=== PATIENT | female | born 1980 | race Native Hawaiian/Other Pacific Islander ===

== ENCOUNTER 2016-10-16 18:54 | Inpatient (IN) | payer OTHER ==
[~2016-10-16] VITALS: Ht 172.7 cm; Wt 123.5 kg
[2016-10-16] VITALS (7 sets, daily range): BP systolic 59–97; BP diastolic 29–42; TEMP 96.9–97.6
[~2016-10-16 18:54] MED LIST: ACET-689 PO; BUT/APAP/CA3 PO; FURO40TA93 PO; MOTRIN IB200 MG OR; OXYCODONE30 MG PO; PERCOCET1 TA3 PO; SOMA350 MG PO; XANAX XR2 MG OR; ZESTRIL40 MG OR
[2016-10-16 19:19] LABS: PLATELET COUNT 141 K/uL (152-353)
[2016-10-16 19:30] LABS: POTASSIUM 4.9 mmol/L (3.6-5.2)
[2016-10-17] VITALS (94 sets, daily range): BP systolic 70–151; BP diastolic 30–96; TEMP 97.6–98.1; Ht 172.7 cm; Wt 123.5 kg
[2016-10-17 07:27] LABS: PLATELET COUNT 115 K/uL (152-353)
[2016-10-17 07:42] LABS: POTASSIUM 5.4 mmol/L (3.6-5.2)
[2016-10-18] VITALS (35 sets, daily range): BP systolic 134–1800; BP diastolic 10–99; TEMP 97.6–98.1
[2016-10-18 07:00] LABS: POTASSIUM 4.7 mmol/L (3.6-5.2)
[2016-10-18 07:35] LABS: PLATELET COUNT 93 K/uL (152-353)
[2016-10-19] VITALS (20 sets, daily range): BP systolic 117–190; BP diastolic 64–100; TEMP 97.5–98.1
[2016-10-19 06:03] LABS: PLATELET COUNT 97 K/uL (152-353)
[2016-10-19 06:53] LABS: POTASSIUM 3.9 mmol/L (3.6-5.2)
[2016-10-20] VITALS (11 sets, daily range): BP systolic 137–190; BP diastolic 73–111; TEMP 97.5–98.5
[2016-10-20 07:26] LABS: PLATELET COUNT 129 K/uL (152-353)
[2016-10-20 08:23] LABS: POTASSIUM 3.6 mmol/L (3.6-5.2)
[2016-10-21] VITALS (10 sets, daily range): BP systolic 160–189; BP diastolic 85–103; TEMP 98–98.5
[2016-10-21 07:23] LABS: PLATELET COUNT 147 K/uL (152-353)
[2016-10-21 07:44] LABS: POTASSIUM 3.2 mmol/L (3.6-5.2)
[2016-10-22] VITALS (15 sets, daily range): BP systolic 121–186; BP diastolic 40–113; TEMP 97.7–98.4
[2016-10-22 06:03] LABS: PLATELET COUNT 232 K/uL (152-353)
[2016-10-22 06:24] LABS: POTASSIUM 3.5 mmol/L (3.6-5.2)
[2016-10-23] VITALS (10 sets, daily range): BP systolic 109–149; BP diastolic 44–83; TEMP 97.3–98.6
[2016-10-23 05:46] LABS: PLATELET COUNT 281 K/uL (152-353)
[2016-10-23 06:05] LABS: POTASSIUM 3.6 mmol/L (3.6-5.2)
[2016-10-24 00:12] VITALS: BP 120/60; TEMP 97.9
[2016-10-24 04:00] VITALS: BP 125/80; TEMP 98.9
[2016-10-24 06:31] LABS: PLATELET COUNT 316 K/uL (152-353)
[2016-10-24 06:42] LABS: POTASSIUM 3.7 mmol/L (3.6-5.2)
[2016-10-24 07:38] VITALS: BP 155/83; TEMP 98.4
[2016-10-24 11:34] VITALS: BP 158/92; TEMP 98.2
[2016-10-24 16:19] VITALS: BP 151/88; TEMP 98.4
[2016-10-24 20:08] VITALS: BP 163/95; TEMP 98.3
[2016-10-25] VITALS: BP 163/95; TEMP 98.3
[2016-10-25 04:00] VITALS: BP 143/83; TEMP 97.7
[2016-10-25 05:47] LABS: PLATELET COUNT 360 K/uL (152-353)
[2016-10-25 06:05] LABS: POTASSIUM 3.8 mmol/L (3.6-5.2)
[2016-10-25 08:00] VITALS: BP 148/82; TEMP 98.4
[2016-10-25 12:00] VITALS: BP 138/69; TEMP 98.1
[2016-10-25 16:00] VITALS: BP 153/88; TEMP 98
[2016-10-25 20:00] VITALS: BP 154/80; TEMP 98.4
[2016-10-26 00:26] VITALS: BP 153/67; TEMP 98.2
[2016-10-26 04:00] VITALS: BP 117/58; TEMP 98.3
[2016-10-26 06:48] LABS: PLATELET COUNT 355 K/uL (152-353)
[2016-10-26 07:14] LABS: POTASSIUM 3.7 mmol/L (3.6-5.2); SODIUM 133 mmol/L (136-145)
[2016-10-26 08:16] VITALS: BP 119/62; TEMP 97.8
[2016-10-26 12:00] VITALS: BP 127/66; TEMP 97.6
[2016-10-26 16:00] VITALS: BP 152/79; TEMP 97.8
[2016-10-26 21:21] VITALS: BP 143/76; TEMP 98.9
[2016-10-27 00:07] VITALS: BP 110/66; TEMP 98.1
[2016-10-27 04:00] VITALS: BP 109/50; TEMP 98
[2016-10-27 05:27] LABS: PLATELET COUNT 411 K/uL (152-353)
[2016-10-27 05:56] LABS: POTASSIUM 3.7 mmol/L (3.6-5.2); SODIUM 133 mmol/L (136-145)
[2016-10-27 08:03] VITALS: BP 117/70; TEMP 98.4
[2016-10-27 11:59] VITALS: BP 124/66; TEMP 98.2
== END 2016-10-27 14:15 | disposition home or self-care (01) | DRG 682 ==
LOC: ED 18:54 → ICU 20:35 → MED/SURG 10-23 14:25
PROVIDERS: Emergency Medicine; Internal Medicine
DX: N17.8 Other acute kidney failure (principal); I50.23 Acute on chronic systolic (congestive) heart failure; R41.82 Altered mental status, unspecified; E86.0 Dehydration; M15.8 Other polyosteoarthritis; M62.82 Rhabdomyolysis; E87.6 Hypokalemia; E83.42 Hypomagnesemia; A04.7 Enterocolitis due to Clostridium difficile; G89.29 Other chronic pain; F32.89 Other specified depressive episodes; T40.601A Poisoning by unspecified narcotics, accidental (unintentional), initial encounter; T42.4X1A Poisoning by benzodiazepines, accidental (unintentional), initial encounter; F11.10 Opioid abuse, uncomplicated
CPT/HCPCS: 36415; 36600; 51702; 80053; 80301; 80307; 81000; 82550; 82553; 82805; 82948; 82962; 83036; 83735; 84100; 85007; 85027; 87015; 87045; 87205; 87328; 87329; 87493; 87899; 93005; 93306; 94760; 96361; 96365; 96372; 96376; 99285; G0479; J0696; J1265; J1644; J1650; J1940; J2310; J2405; J3475; J3490

== ENCOUNTER 2017-03-27 10:50 | Emergency (ER) | payer OTHER ==
[~2017-03-27] VITALS: Ht 172.7 cm; Wt 97.5 kg
[2017-03-27 10:55] VITALS: BP 157/81; TEMP 98.4
[2017-03-27] MEDS ORDERED: METHADONE40 MG OR (11:17)
[2017-03-27 11:38] LABS: PLATELET COUNT 227 K/uL (152-353)
[2017-03-27 11:43] LABS: SODIUM 131 mmol/L (136-145)
== END 2017-03-27 12:35 | disposition home or self-care (01) ==
LOC: ED 10:50
DX: M54.5 Low back pain (principal); M41.86 Other forms of scoliosis, lumbar region; M47.896 Other spondylosis, lumbar region
CPT/HCPCS: 36415; 80053; 85027; 96374; 96375; 99284; J2405

== ENCOUNTER 2017-03-28 13:48 | Outpatient (CLI) | payer OTHER ==
[~2017-03-28 13:48] MED LIST changes: +METHADONE40 MG OR
== END 2017-03-28 13:51 | disposition short-term general hospital (02) ==
LOC: AMB 13:48
DX: R41.82 Altered mental status, unspecified (principal)
CPT/HCPCS: A0425; A0427

== ENCOUNTER 2017-03-28 13:50 | Emergency (ER) | payer OTHER ==
[~2017-03-28] VITALS: Ht 175.3 cm; Wt 125.0 kg
[2017-03-28 15:28] LABS: PLATELET COUNT 257 K/uL (152-353)
[2017-03-28 16:00] LABS: POTASSIUM 6.8 mmol/L (3.6-5.2)
[2017-03-28 21:15] LABS: POTASSIUM 6.3 mmol/L (3.6-5.2)
[2017-03-28 22:11] VITALS: BP 117/62; TEMP 98
== END 2017-03-28 22:16 | disposition short-term general hospital (02) ==
LOC: ED 13:50
PROVIDERS: Specialist
DX: T65.91XA Toxic effect of unspecified substance, accidental (unintentional), initial encounter (principal); E87.5 Hyperkalemia; M62.82 Rhabdomyolysis; F19.90 Other psychoactive substance use, unspecified, uncomplicated; Y92.89 Other specified places as the place of occurrence of the external cause
CPT/HCPCS: 80048; 80307; 81002; 82550; 82553; 83605; 84132; 84484; 85027; 93005; 96360; 96365; 96375; 96376; 99285; G0479; J0610; J1815; J3490; J7060

== ENCOUNTER 2017-06-14 13:31 | Outpatient (CLI) | payer OTHER | END 2017-06-14 13:33 | disposition short-term general hospital (02) | LOC: AMB 13:31 | DX: F11.23 Opioid dependence with withdrawal (principal); R52 Pain, unspecified | CPT/HCPCS: A0425; A0427 ==

== ENCOUNTER 2017-06-14 13:40 | Observation (INO) | payer OTHER ==
[2017-06-14] VITALS (18 sets, daily range): BP systolic 120–162; BP diastolic 68–104; TEMP 97–98.2; Ht 172.7 cm; Wt 115.9 kg
[~2017-06-14] VITALS: Ht 172.7 cm; Wt 115.9 kg
[2017-06-14 14:08] LABS: PLATELET COUNT 215 K/uL (152-353)
[2017-06-14 14:11] LABS: SODIUM 131 mmol/L (136-145)
[2017-06-15 02:00] VITALS: BP 158/88
[2017-06-15 03:00] VITALS: BP 163/96
[2017-06-15 04:00] VITALS: BP 148/89; TEMP 98.2
[2017-06-15 05:00] VITALS: BP 161/96
[2017-06-15 05:54] LABS: PLATELET COUNT 192 K/uL (152-353)
[2017-06-15 06:00] VITALS: BP 142/75
[2017-06-15 06:10] LABS: POTASSIUM 4.1 mmol/L (3.6-5.2); SODIUM 134 mmol/L (136-145)
== END 2017-06-15 08:15 | disposition home or self-care (01) ==
LOC: ED 13:40 → ICU 15:05
PROVIDERS: Family Medicine; ADMIT Emergency Medicine
DX: T42.6X1A Poisoning by other antiepileptic and sedative-hypnotic drugs, accidental (unintentional), initial encounter (principal); F11.20 Opioid dependence, uncomplicated; Y92.89 Other specified places as the place of occurrence of the external cause; E86.0 Dehydration; R00.0 Tachycardia, unspecified; I10 Essential (primary) hypertension; B19.20 Unspecified viral hepatitis C without hepatic coma
CPT/HCPCS: 36415; 80053; 80307; 80320; 80329; 81000; 82550; 82962; 83735; 84484; 85027; 93005; 96360; 99220; 99285; G0378; G0479; J2060

== ENCOUNTER 2017-10-17 21:44 | Emergency (ER) | payer OTHER ==
[~2017-10-17] VITALS: Ht 172.7 cm; Wt 102.1 kg
[2017-10-17] MEDS ORDERED: OXYCODONE30 MG PO (22:05)
[2017-10-17 23:43] LABS: PLATELET COUNT 208 K/uL (152-353)
[2017-10-17 23:53] LABS: POTASSIUM 4.2 mmol/L (3.6-5.2); SODIUM 132 mmol/L (136-145)
[2017-10-18 01:16] VITALS: BP 160/85; TEMP 98.8
== END 2017-10-18 01:20 | disposition home or self-care (01) ==
LOC: ED 21:44
PROVIDERS: Specialist
DX: E87.79 Other fluid overload (principal); G89.29 Other chronic pain; R00.0 Tachycardia, unspecified
CPT/HCPCS: 36415; 36600; 80053; 82550; 82553; 82805; 83880; 84484; 85027; 93005; 96374; 99283; J1940

== ENCOUNTER 2017-12-30 09:41 | Emergency (ER) | payer OTHER ==
[~2017-12-30] VITALS: Ht 172.7 cm; Wt 113.4 kg
[2017-12-30 09:57] VITALS: TEMP 97.3
[2017-12-30 10:20] VITALS: BP 170/84
== END 2017-12-30 10:20 | disposition home or self-care (01) ==
LOC: ED 09:41
DX: R68.84 Jaw pain (principal); K05.10 Chronic gingivitis, plaque induced; Z98.818 Other dental procedure status
CPT/HCPCS: 99282

== ENCOUNTER 2018-04-07 02:09 | Outpatient (CLI) | payer OTHER | END 2018-04-07 02:14 | disposition short-term general hospital (02) | LOC: AMB 02:09 | DX: H57.8 Other specified disorders of eye and adnexa (principal); Y04.0XXA Assault by unarmed brawl or fight, initial encounter; Y93.89 Activity, other specified; Y92.89 Other specified places as the place of occurrence of the external cause; Y99.8 Other external cause status | CPT/HCPCS: A0425; A0429 ==

== ENCOUNTER 2018-04-07 02:20 | Emergency (ER) | payer OTHER ==
[~2018-04-07] VITALS: Ht 172.7 cm; Wt 106.6 kg
[2018-04-07 02:20] VITALS: BP 191/114; TEMP 97.7
== END 2018-04-07 04:02 | disposition home or self-care (01) ==
LOC: ED 02:20
DX: S05.11XA Contusion of eyeball and orbital tissues, right eye, initial encounter (principal); Z87.81 Personal history of (healed) traumatic fracture; Y09 Assault by unspecified means; Y92.89 Other specified places as the place of occurrence of the external cause
CPT/HCPCS: 99282

== ENCOUNTER 2018-10-31 19:59 | Emergency (ER) | payer OTHER ==
[~2018-10-31] VITALS: Ht 172.7 cm; Wt 97.5 kg
[2018-10-31 20:50] LABS: PLATELET COUNT 341 K/uL (152-353)
[2018-10-31 21:05] LABS: POTASSIUM 3.3 mmol/L (3.6-5.2)
[2018-10-31 22:09] VITALS: BP 136/64; TEMP 97.8
== END 2018-10-31 22:10 | disposition home or self-care (01) ==
LOC: ED 19:59
PROVIDERS: Emergency Medicine
DX: K52.89 Other specified noninfective gastroenteritis and colitis (principal); J18.9 Pneumonia, unspecified organism
CPT/HCPCS: 36415; 80053; 85027; 87502; 96365; 96374; 99284; J2405

== ENCOUNTER 2018-12-16 15:40 | Emergency (ER) | payer OTHER ==
[~2018-12-16] VITALS: Ht 172.7 cm; Wt 117.9 kg
[2018-12-16 15:44] VITALS: TEMP 98.3
[2018-12-16] MEDS ORDERED: DIAZ5TAB20 PO (16:08)
[2018-12-16 17:18] LABS: PLATELET COUNT 242 K/uL (152-353)
[2018-12-16 17:19] LABS: POTASSIUM 4.3 mmol/L (3.6-5.2)
[2018-12-16 18:06] VITALS: BP 168/79
== END 2018-12-16 18:10 | disposition home or self-care (01) ==
LOC: ED 15:40
PROVIDERS: Family Medicine
DX: J18.9 Pneumonia, unspecified organism (principal); E11.65 Type 2 diabetes mellitus with hyperglycemia
CPT/HCPCS: 36415; 80053; 85027; 87502; 87651; 96372; 99283; J0696; J1815

== ENCOUNTER 2020-07-12 13:05 | Inpatient (IN) | payer OTHER ==
[~2020-07-12] VITALS: Ht 172.7 cm; Wt 123.9 kg
[~2020-07-12 13:05] MED LIST changes: +DIAZ5TAB20 PO
[2020-07-12 13:15] VITALS: BP 175/94; TEMP 98.7
[2020-07-12 13:40] LABS: PLATELET COUNT 199 K/uL (152-353)
[2020-07-12 13:52] LABS: POTASSIUM 4.1 mmol/L (3.6-5.2)
[2020-07-12 14:15] VITALS: BP 165/82
[2020-07-12 15:15] VITALS: BP 144/79
[2020-07-12 16:15] VITALS: BP 156/80
[2020-07-12 18:27] VITALS: BP 146/68; TEMP 97.9; Ht 172.7 cm; Wt 123.9 kg
[2020-07-12 20:12] VITALS: BP 157/72; TEMP 98.5
[2020-07-13] VITALS: BP 175/100; TEMP 98.7
[2020-07-13 04:00] VITALS: BP 128/69; TEMP 98.3
[2020-07-13 05:09] LABS: PLATELET COUNT 195 K/uL (152-353)
[2020-07-13 05:26] LABS: POTASSIUM 4.4 mmol/L (3.6-5.2)
[2020-07-13 08:00] VITALS: BP 129/67; TEMP 97.7
== END 2020-07-13 10:05 | disposition left against medical advice (07) | DRG 392 ==
LOC: ED 13:05 → MED/SURG 16:30
PROVIDERS: Hospitalist; ADMIT Internal Medicine
DX: K52.89 Other specified noninfective gastroenteritis and colitis (principal); J20.9 Acute bronchitis, unspecified; E11.9 Type 2 diabetes mellitus without complications; K21.9 Gastro-esophageal reflux disease without esophagitis; Z72.0 Tobacco use; K76.0 Fatty (change of) liver, not elsewhere classified
CPT/HCPCS: 36415; 80053; 81000; 82150; 82947; 82948; 82962; 83605; 83690; 85007; 85027; 87040; 96360; 96365; 96366; 96367; 96372; 96374; 96375; 99284; J1650; J1815; J1956; J2405; J2930; J3490; Q9963

== ENCOUNTER 2020-11-12 09:03 | Outpatient (CLI) | payer OTHER ==
[2020-11-12 09:40] LABS: PLATELET COUNT 226 K/uL (152-353)
[2020-11-12 09:50] LABS: POTASSIUM 4.2 mmol/L (3.6-5.2)
== END 2020-11-12 20:38 | disposition home or self-care (01) ==
LOC: LABW 09:03
PROVIDERS: ATTEND Internal Medicine Gastroenterology
DX: B18.2 Chronic viral hepatitis C (principal)
CPT/HCPCS: 36415; 80053; 80074; 82172; 82247; 82465; 82947; 82977; 83010; 83883; 84450; 84460; 84478; 85027; 85610; 87522; 87902

== ENCOUNTER 2020-11-26 09:20 | Outpatient (CLI) | payer OTHER | END 2020-11-26 20:06 | disposition home or self-care (01) | LOC: US 09:20 | PROVIDERS: ATTEND Internal Medicine Gastroenterology | DX: B18.2 Chronic viral hepatitis C (principal) ==

== ENCOUNTER 2020-12-02 09:34 | Day surgery (SDC) | payer OTHER ==
[2020-11-26 11:26] LABS: PLATELET COUNT 267 K/uL (152-353)
[2020-11-26 11:32] LABS: POTASSIUM 4.4 mmol/L (3.6-5.2)
[~2020-12-02] VITALS: Ht 30.5 cm; Wt 0.5 kg
== END 2020-12-02 12:02 | disposition home or self-care (01) ==
LOC: OR 09:34
PROVIDERS: ATTEND Internal Medicine Gastroenterology
PROC: 0DB68ZZ Excision of Stomach, Via Natural or Artificial Opening Endoscopic (ICD-10-PCS; principal; 2020-12-02)
DX: K29.50 Unspecified chronic gastritis without bleeding (principal); K21.00 Gastro-esophageal reflux disease with esophagitis, without bleeding; K25.9 Gastric ulcer, unspecified as acute or chronic, without hemorrhage or perforation; R10.12 Left upper quadrant pain; B18.2 Chronic viral hepatitis C; Z20.828 Contact with and (suspected) exposure to other viral communicable diseases
CPT/HCPCS: 80053; 85027; 87635; J2001; J2704; U0003

== ENCOUNTER 2021-01-27 14:51 | Outpatient (CLI) | payer OTHER | END 2021-01-27 20:33 | disposition home or self-care (01) | LOC: LABW 14:51 | PROVIDERS: ATTEND Internal Medicine Gastroenterology | DX: B18.2 Chronic viral hepatitis C (principal) | CPT/HCPCS: 80307 ==

== ENCOUNTER 2022-08-02 10:57 | Outpatient (CLI) | payer OTHER ==
[2022-08-02 11:19] LABS: PLATELET COUNT 228 K/uL (152-353)
[2022-08-02 11:48] LABS: POTASSIUM 4.1 mmol/L (3.6-5.2)
== END 2022-08-02 19:33 | disposition home or self-care (01) ==
LOC: LABW 10:57
PROVIDERS: ATTEND Family Medicine
DX: F11.20 Opioid dependence, uncomplicated (principal); Z68.37 Body mass index [BMI] 37.0-37.9, adult; Z79.899 Other long term (current) drug therapy
CPT/HCPCS: 36415; 80053; 80061; 80074; 83036; 85027; 86592; 87535; G0432

== ENCOUNTER 2022-08-18 12:40 | Emergency (ER) | payer OTHER ==
[~2022-08-18] VITALS: Ht 172.7 cm; Wt 104.4 kg
[2022-08-18 14:22] VITALS: BP 138/66; TEMP 98.3
== END 2022-08-18 14:22 | disposition home or self-care (01) ==
LOC: ED 12:40
DX: J20.9 Acute bronchitis, unspecified (principal); F17.210 Nicotine dependence, cigarettes, uncomplicated
CPT/HCPCS: 87502; 87635; 87651; 99283; U0003

== ENCOUNTER 2023-01-09 11:16 | Emergency (ER) | payer OTHER ==
[~2023-01-09] VITALS: Ht 172.7 cm; Wt 111.1 kg
[~2023-01-09 11:16] MED LIST changes: +ALBU90AE13 INH; +AZIT250T3 PO; +BASAGLAR K100 UNIT/M SC; +BUPRENORPHINE H1 SU3 SL; +DIAZ2TAB PO; +GRALISE600 MG PO; +LEVAQUIN250 MG PO; +NARCAN4 MG/0.1 M NAS; +VICTOZA18 MG/3 ML SC
[2023-01-09 12:30] VITALS: BP 135/80; TEMP 98.5
== END 2023-01-09 12:35 | disposition home or self-care (01) ==
LOC: ED 11:16
DX: M54.59 Other low back pain (principal); G89.29 Other chronic pain; V89.2XXA Person injured in unspecified motor-vehicle accident, traffic, initial encounter; Y92.89 Other specified places as the place of occurrence of the external cause
CPT/HCPCS: 99282

== ENCOUNTER → 2023-01-23 | Outpatient (CLI) | payer OTHER ==
[2023-01-23 10:23] LABS: PLATELET COUNT 253 K/uL (152-353)
[2023-01-23 10:38] LABS: POTASSIUM 4.2 mmol/L (3.6-5.2)
== END ==
LOC: LABW 10:09
PROVIDERS: ATTEND Nurse Practitioner Family
DX: F41.1 Generalized anxiety disorder (principal); F11.21 Opioid dependence, in remission; E11.9 Type 2 diabetes mellitus without complications; F17.210 Nicotine dependence, cigarettes, uncomplicated
CPT/HCPCS: 36415; 80053; 80061; 82306; 83036; 85027

== ENCOUNTER 2023-03-15 07:33 | Observation (INO) | payer OTHER ==
[~2023-03-15] VITALS: Ht 172.7 cm; Wt 115.7 kg
[~2023-03-15 07:33] MED LIST changes: +LEVOFLOXACIN750 MG PO; +TESSALON PER100 MG PO
[2023-03-15 07:37] VITALS: BP 213/98; TEMP 97.6
[2023-03-15 07:59] VITALS: BP 155/87
[2023-03-15 08:03] LABS: PLATELET COUNT 208 K/uL (152-353)
[2023-03-15 08:20] LABS: POTASSIUM 4.5 mmol/L (3.6-5.2); SODIUM 130 mmol/L (136-145)
[2023-03-15 08:57] VITALS: BP 135/65
[2023-03-15 10:24] VITALS: BP 125/72
[2023-03-15 11:30] VITALS: BP 138/65
[2023-03-15 13:54] VITALS: BP 119/67; TEMP 97.7; Ht 172.7 cm; Wt 115.7 kg
[2023-03-15] MEDS ORDERED: BUPRENORPHINE H1 SU3 SL (14:24)
[2023-03-15] MEDS ORDERED: CLON1TAB18 PO (14:25)
[2023-03-15] MEDS ORDERED: ALEVE220 M1 PO (14:27)
[2023-03-15 15:35] LABS: POTASSIUM 4.5 mmol/L (3.6-5.2)
== END 2023-03-15 16:30 | disposition home or self-care (01) ==
LOC: ED 07:33 → MED/SURG 11:19
PROVIDERS: Emergency Medicine; ADMIT Emergency Medicine; ATTEND Internal Medicine
DX: J18.8 Other pneumonia, unspecified organism (principal); F17.210 Nicotine dependence, cigarettes, uncomplicated; J44.9 Chronic obstructive pulmonary disease, unspecified; D72.828 Other elevated white blood cell count; E11.65 Type 2 diabetes mellitus with hyperglycemia; R06.02 Shortness of breath; Z79.899 Other long term (current) drug therapy
CPT/HCPCS: 80053; 80307; 83880; 84484; 85027; 85379; 87040; 93005; 94664; 96361; 96365; 96375; 99221; 99284; G0378; J1815; J1956; J3490